=== PATIENT | male | born 1955 | race Caucasian/White ===

== ENCOUNTER 2017-04-15 11:38 | Outpatient (CLI) | payer OTHER ==
[2017-04-15 12:11] LABS: ALBUMIN/GLOBULIN RATIO 1.6 (1.0-2.2); BILIRUBIN,TOTAL 0.8 mg/dL (0.2-1.0); CALCIUM 9.6 mg/dL (8.5-10.3); CREATININE 0.9 mg/dL (0.6-1.2); POTASSIUM 4.5 mmol/L (3.5-5.0); TOTAL PROTEIN 7.7 g/dL (6.7-8.2)
== END 2017-04-15 11:39 | disposition home or self-care (01) ==
LOC: LAB 11:38
PROVIDERS: ATTEND Surgery
DX: K80.50 Calculus of bile duct without cholangitis or cholecystitis without obstruction (principal)
CPT/HCPCS: 36415; 80053

== ENCOUNTER 2017-04-25 10:21 | Day surgery (SDC) | payer OTHER ==
[2017-04-25] MEDS ORDERED: LACTATED RINGERS 1,000 ML IV ONE ×2 (10:55→13:34)
[2017-04-25] MEDS ORDERED: ceFAZolin 2 GM/50 ML 2 GM/50 ML BAG IV ONE (10:59)
[2017-04-25] MEDS ORDERED: BUPIVACAINE 0.5% PF 10 ML VIAL IM ONE (13:25)
[2017-04-25] MEDS ORDERED: DEXAMETHASONE 4 MG/ML VIAL IVP ONE (13:45)
[2017-04-25] MEDS ORDERED: GLYCOPYRROLATE 1 MG/5 ML VIAL IVP ONE (13:45)
[2017-04-25] MEDS ORDERED: LIDOCAINE-MPF 2% 5 ML VIAL IM ONE (13:45)
[2017-04-25] MEDS ORDERED: KETOROLAC 30 MG/ML VIAL IVP ONE (13:45)
[2017-04-25] MEDS ORDERED: PROPOFOL 200 MG/20 ML VIAL IVP ONE (13:45)
[2017-04-25] MEDS ORDERED: ACETAMINOPHEN 1,000 MG/100 ML 100 ML IV ONE (13:45)
[2017-04-25] MEDS ORDERED: MIDAZOLAM 2 MG/2 ML VIAL IVP ONE (13:45)
[2017-04-25] MEDS ORDERED: SUCCINYLCHOLINE 200 MG/10 ML VIAL IVP ONE (13:45)
[2017-04-25] MEDS ORDERED: ONDANSETRON 4 MG/2 ML VIAL IVP ONE (13:45)
[2017-04-25] MEDS ORDERED: fentaNYL 100 MCG/2 ML VIAL IVP ONE (13:45)
[2017-04-25] MEDS ORDERED: NEOSTIGMINE 1 MG/1 ML 10 ML MDV IVP ONE (13:45)
[2017-04-25] MEDS ORDERED: PHENYLEPHRINE 50 MG/5 ML VIAL IV ONE (13:45)
[2017-04-25 15:44] VITALS: BP 128/76
--- NOTE | 2017-04-29 14:38 | OPERATIVE REPORT ---
DATE OF SURGERY: 04/25/2017 00:00:00 SURGEON: Hamrony Fall MD. ANESTHESIA: General, KNIFE CUTTER, Joe Hager. PROCEDURE: Laparoscopic cholecystectomy. INDICATION FOR PROCEDURE: Biliary colic. PREOPERATIVE DIAGNOSIS: Biliary colic. POSTOPERATIVE DIAGNOSIS: Biliary colic. FINDINGS: After obtaining informed consent, the patient was brought into the operating room and positioned on the operating table in a supine position, taking note of pressure points. The patient was intubated by Anesthesia. He was prepped and draped in the usual sterile fashion and a time-out was taken according to protocol. Preoperative antibiotics were administered. An infraumbilical 1 cm incision was created, deepened down to the umbilical stalk. This was grasped, elevated, and a Veress needle inserted and the abdominal cavity insufflated. A 5 mm incision was created in the epigastric region to the right of midline and the Optiview trocar was inserted at this location. The Veress needle was exchanged for a 12 mm port. No injury to the underlying abdominal structures was observed upon entrance into the abdominal cavity. Two additional 5 mm ports were placed under visualization. The gallbladder was grasped and retracted over the dome of the liver. The gallbladder was noted to be very thickened. There were some adhesions of the underlying omentum to the gallbladder, which were taken down with blunt dissection and electrocautery. The base of the gallbladder was then grasped and retracted medially exposing the lateral attachments of the base of the gallbladder. These were opened up using electrocautery towards the anterior gallbladder and then towards the medial aspect of the gallbladder. The cystic duct was then circumferentially dissected from surrounding structures. Cystic artery was similarly dissected free from fatty tissue. The gallbladder was resected from the liver at its base , exposing the critical view. The cystic duct was then clipped with 2 clips placed proximally, 1 distally, and divided. The artery was divided in a similar manner. Of note, was a large stone located at the neck of the gallbladder. The gallbladder was then removed from the gallbladder bed using electrocautery. There was a small amount of spillage of bile and stones during this process. The gallbladder was placed in the specimen bag and removed through the umbilical port. The abdominal cavity was then very carefully inspected and any stones, which had dropped from the gallbladder were carefully removed. Approximately 30 minutes was spent searching for any dropped stones and removing them. The liver bed was inspected for signs of bleeding and hemostasis was noted to be achieved. The umbilical fascial incision was closed using a Lorenzo-Aurora device and 0 Vicryl suture. The skin incisions were closed with 4-0 Monocryl. 30 mL of local anesthetic was utilized. Dermabond was applied. EBL: 5cc COMPLICATIONS: None SPECIMEN: Gallbladder JOB #: [id number] EXT JOB #:[id number] [facility]
== END 2017-04-25 10:22 | disposition home or self-care (01) ==
LOC: SDS 10:21
PROVIDERS: ATTEND Surgery
PROC: 0FT44ZZ Resection of Gallbladder, Percutaneous Endoscopic Approach (ICD-10-PCS; principal; 2017-04-25 11:45)
DX: K80.10 Calculus of gallbladder with chronic cholecystitis without obstruction (principal); I10 Essential (primary) hypertension; E78.5 Hyperlipidemia, unspecified; Z87.891 Personal history of nicotine dependence
CPT/HCPCS: 47562; J0131; J0690; J7120

== ENCOUNTER 2019-04-22 10:33 | Day surgery (SDC) | payer MEDICARE, OTHER ==
[2019-04-22] MEDS ORDERED: fentaNYL 250 MCG/5 ML VIAL IVP ONE (10:34)
[2019-04-22] MEDS ORDERED: MIDAZOLAM 2 MG/2 ML VIAL IVP ONE (10:34)
[2019-04-22] MEDS ORDERED: LACTATED RINGERS 1,000 ML IV ONE (11:04)
[2019-04-22 13:19] VITALS: BP 112/64
== END 2019-04-22 10:34 | disposition home or self-care (01) ==
LOC: SDS 10:33
PROVIDERS: ATTEND Surgery
PROC: 0DJD8ZZ Inspection of Lower Intestinal Tract, Via Natural or Artificial Opening Endoscopic (ICD-10-PCS; principal; 2019-04-22 12:30)
DX: Z12.11 Encounter for screening for malignant neoplasm of colon (principal); K64.8 Other hemorrhoids; K57.30 Diverticulosis of large intestine without perforation or abscess without bleeding; Z86.010 Personal history of colon polyps; Z80.0 Family history of malignant neoplasm of digestive organs; I10 Essential (primary) hypertension; R73.03 Prediabetes; Z87.891 Personal history of nicotine dependence; E66.3 Overweight
CPT/HCPCS: G0105; J7120